=== PATIENT | male | born 1950 | race Caucasian/White ===

== ENCOUNTER 2021-02-13 14:41 | Observation (INO) | payer MEDICARE, OTHER ==
[2021-02-13] MEDS ORDERED: Zofran 4 MG/2 ML VIAL IV STA (15:10)
[2021-02-13 15:24] LABS: Absolute Neutrophil Ct (ANC) 4.94 (1.4-6.9); BASOPHIL % 0.1 % (0.0-0.4); Basophil (Absolute #) 0.01 (0-0.4); Eosinophil (Absolute #) 0 (0-0.5); Hematocrit 43.6 % (42-50); Hemoglobin 14.4 gm/dl (12.5-18.0); Lymphocyte (Absolute #) 1.16 (1.0-4.6); Lymphocytes % 16.6 % (24.0-44.0); Mean Cell Volume 96.9 fl (78-100); Mean Platelet Volume 11.4 fl (7.5-11.0); Monocyte (Absolute #) 0.87 (0.0-1.3); Monocytes % 12.5 % (0.0-12.0); Neutrophil % 70.8 % (36.0-66.0); Platelet Count 171 K/mm3 (150-450); Red Cell Distribution Width 13.2 % (11.5-14.0)
--- NOTE | 2021-02-13 15:48 | XRAY ---
Indication: Fever and vomiting. Comparison: October 24, 2014. Portable chest less inflated and remains clear. Heart not enlarged. Bony thorax intact again with mild degenerative changes and left axilla jeronimo dissection. Impression: Continued nonacute chest with chronic features.
[2021-02-13 16:11] LABS: ALBUMIN 4.3 g/dL (3.5-5.0); ALKALINE PHOSPHATASE 68 U/L (38-126); ANION GAP 16.3 MEQ/L (5-15); BLOOD UREA NITROGEN 22 mg/dL (9-20); CHLORIDE 98 mmol/L (98-107); Calcium 8.8 mg/dL (8.4-10.2); Carbon Dioxide 26 mmol/L (22-30); Creatinine 1 0.99 mg/dL (0.66-1.25); EST GLOMERULAR FILTRATION RATE > 60.0 ML/MIN; Ferritin 155 ng/mL (17.9-464); Glucose 187 mg/dL (74-106); LDH-LACTATE DEHYDROGENASE 170 U/L (120-246); Potassium 4.1 mmol/L (3.5-5.1); SGOT/AST 42 U/L (17-59); SGPT/ALT 29 U/L (0-50); SODIUM 136 mmol/L (137-145); Total Protein 7.1 g/dL (6.3-8.2)
[2021-02-13] MEDS ORDERED: Zofran 4 MG/2 ML VIAL ONE (16:26)
[2021-02-13] MEDS: Sodium Chloride 0.9% 1000 ML 1,000 ML IV SCH (16:27)
[2021-02-13 16:48] LABS: Appearance CLEAR (CLEAR); Bilirubin NEGATIVE (NEGATIVE); Blood SMALL Ery/ul (0-5); Glucose NEGATIVE (NEGATIVE); Ketones SMALL (NEGATIVE); Leukocyte Esterase NEGATIVE (NEGATIVE); Mucus SLIGHT /HPF (NEGATIVE); Nitrite NEGATIVE (NEGATIVE); Protein,Urine Dip 100 (Negative); Specific Gravity 1.027 (1.005-1.025); Urobilinogen NEGATIVE mg/dL (0-1); WBC 0-2 /HPF (0-5)
--- NOTE | 2021-02-13 16:54 | ERPHSYRPT ---
- History of Present Illness Time Seen by Provider: 02/13/21 15:30 Source: patient Exam Limitations: no limitations Patient Subjective Stated Complaint: weakness Triage Nursing Assessment: Patient brought back to ED via w/c and transferred to bed with assist of 1. Patient A+O X3. Patient's skin flushed, warm and dry. Patient states he has had fever, cough, headache, bodyac he since Tuesday. Patient states he has vomited the past two days. Patient complains of constant body aches 01/27. Physician History: This is a 70-year-old obese white male who is diabetic and has 1 week history of weakness, mild cough, fever, myalgias/arthralgias and multiple vomiting episodes. Patient denies chest pain. He only has mild shortness of breath. Patient's spouse had a positive COVID-19 test just today. Timing/Duration: week(s) (1) Severity: moderate Associated Symptoms: nausea, vomiting, cough, chills, weakness, No shortness of breath, No chest pain Allergies/Adverse Reactions: No Known Drug Allergies Allergy (Verified 02/13/21 15:09) Home Medications: Atorvastatin Calcium 20 mg PO DAILY 10/24/14 [History] Duloxetine HCl 30 mg [Cymbalta 30 MG Capsule] 60 mg PO DAILY 10/24/14 [H istory] Metformin HCl [Metformin HCl ER] 500 mg PO BID 10/24/14 [History] Pioglitazone 30 mg [Actos 30 MG] 30 mg PO DAILY 10/24/14 [History] Tamsulosin HCl 0.4 mg [Flomax 0.4 MG] 0.4 mg PO DAILY 10/24/14 [History] Hx Tetanus, Diphtheria Vaccination/Date Given: No Hx Influenza Vaccination/Date Given: Yes (2013) Hx Pneumococcal Vaccination/Date Given: No Immunizations Up to Date: Yes Travel Risk - International Travel Have you traveled outside of the country in past 3 weeks: No - Coronavirus Screening Are you exhibiting any of the following symptoms?: Yes Symptoms: Fever, Cough: New Onset, Vomiting/Diarrhea, Headaches/Body Aches/Fatigue Close contact with a COVID-19 positive Pt in past 14-21 Days: Yes - Vaccine Status Have you recieved a Covid-19 vaccination: No - Review of Systems Constitutional: No Symptoms Eyes: No Symptoms Ears, Nose, & Throat: No Symptoms Respiratory: No Symptoms Cardiac: No Symptoms Abdominal/Gastrointestinal: Nausea, Vomiting Genitourinary Symptoms: No Symptoms, Other Musculoskeletal: Arthralgias, Myalgias Skin: No Symptoms Neurological: No Symptoms Psychological: No Symptoms Endocrine: No Symptoms Hematologic/Lymphatic: No Symptoms Immunological/Allergic: No Symptoms All Other Systems: Reviewed and Negative - Past Medical History Pertinent Past Medical History: Yes Neurological History: TIA Cardiac History: Hypertension Endocrine Medical History: Diabetes Type II Other Medical History: 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 - Past Surgical History Past Surgical History: Yes Gastrointestinal: Appendectomy - Social History Smoking Status: Never smoker Exposure to second hand smoke: No Drug Use: none Patient Lives Alone: No - Nursing Vital Signs Nursing Vital Signs: Initial Vital Signs Temperature 102.0 F 02/13/21 15:19 Pulse Rate 74 02/13/21 15:19 Respiratory Rate 20 02/13/21 15:19 Blood Pressure 142/70 02/13/21 15:19 O2 Sat by Pulse Oximetry 95 02/13/21 15:19 Pain Scale Pain Intensity 2 - Physical Exam General Appearance: mild distress, alert Eye Exam: PERRL/EOMI, eyes nml inspection Ears, Nose, Throat Exam: normal ENT inspection, moist mucous membranes Neck Exam: normal inspection, non-tender, supple, full range of motion Respiratory Exam: normal breath sounds, lungs clear, airway intact, No chest tenderness, No respiratory distress Cardiovascular Exam: regular rate/rhythm, normal heart sounds, normal peripheral pulses Gastrointestinal/Abdomen Exam: soft, normal bowel sounds, tenderness Rectal Exam: not done Back Exam: normal inspection, normal range of motion, No CVA tenderness, No vertebral tenderness Extremity Exam: normal inspection, normal range of motion, pelvis stable Neurologic Exam: alert, oriented x 3, cooperative, house manager II-XII nml as tested, normal mood/affect, nml cerebellar function, nml station & gait, sensation nml Skin Exam: normal color, warm Lymphatic Exam: No adenopathy SpO2 Interpretation: normal SpO2: 95 O2 Delivery: Room Air - Course Nursing assessment & vital signs reviewed: Yes Ordered Tests: Active Orders 24 hr Category Date Time Status EKG-ER Only STAT Care 02/13/21 15:10 Active IV Insertion STAT Care 02/13/21 15:10 Active Isolation, Initiate & Maintain STAT Care 02/13/21 15:10 Active Pulse Oximetry (ED) STAT Care 02/13/21 15:10 Active CHEST 1 VIEW (PORTABLE) Routine Exams 02/13/21 15:35 Completed BLOOD CULTURE Stat Lab 02/13/21 15:40 Received CBC W DIFF Stat Lab 02/13/21 15:10 Completed CMP Stat Lab 02/13/21 15:10 Completed Ferritin Stat Lab 02/13/21 15:10 Completed LDH-LACTATE DEHYDROGENASE Stat Lab 02/13/21 15:10 Completed Lactic Acid Stat Lab 02/13/21 15:50 Completed [place] Screen Stat Lab 02/13/21 15:10 Completed TROPONIN Q3H Lab 02/13/21 15:10 Completed TROPONIN Q3H Lab 02/13/21 18:15 Completed TROPONIN Q3H Lab 02/13/21 21:15 Ordered TROPONIN Q3H Lab 02/14/21 00:15 Ordered TROPONIN Q3H Lab 02/14/21 03:15 Ordered UA W/RFX UR CULTURE Stat Lab 02/13/21 16:26 Completed Transfer Order Routine Transfer 02/13/21 Ordered Medication Summary Generic Name Dose Route Start Last Admin Trade Name Freq PRN Reason Stop Dose Admin Sodium Chloride 1,000 mls @ 100 mls/hr 02/13/21 15:15 02/13/21 16:27 Sodium Chloride 0.9% 1000 Ml IV 03/15/21 15:14 100 mls/hr .Q10H PANCHO Administration Remdesivir 200 mg/ Sodium 250 mls @ 125 mls/hr 02/13/21 18:59 Chloride IV 02/13/21 20:58 ONCE ONE Discontinued Medications Generic Name Dose Route Start Last Admin Trade Name Freq PRN Reason Stop Dose Admin Hydrocodone Bitart/Acetaminophen 10 ml 02/13/21 18:34 02/13/21 18:56 Hydrocodone-Acetamin 2.5-108/5 Ml Solution PO 02/13/21 18:35 10 ml STAT STA Administration Hydrocodone Bitart/Acetaminophen Confirm 02/13/21 18:55 Hydrocodone-Acetamin 2.5-108/5 Ml Solution Administered 02/13/21 18:56 Dose 10 ml .ROUTE .STK-MED ONE Dexamethasone Sodium Phosphate 8 mg 02/13/21 18:58 Decadron 10mg Inj. IV 02/13/21 18:59 STAT ONE Enoxaparin Sodium 40 mg 02/13/21 18:58 Enoxaparin Sodium SQ 02/13/21 18:59 STAT ONE Ibuprofen 400 mg 02/13/21 18:34 02/13/21 18:56 Motrin 400 Mg PO 02/13/21 18:35 400 mg STAT ONE Administration Ibuprofen Confirm 02/13/21 18:55 Motrin 400 Mg Administered 02/13/21 18:56 Dose 400 mg .ROUTE .STK-MED ONE Ondansetron HCl 4 mg 02/13/21 15:10 02/13/21 16:27 Zofran 4 Mg/2 Ml Vial IV 02/13/21 15:11 4 mg STAT STA Administration Ondansetron HCl Confirm 02/13/21 16:26 Zofran 4 Mg/2 Ml Vial Administered 02/13/21 16:27 Dose 4 mg .ROUTE .STK-[facility] ONE Lab/Rad Data: Laboratory Result Diagrams 02/13/21 15:10 02/13/21 15:10 Laboratory Results 02/13/21 02/13/21 02/13/21 Range/Units 18:15 16:26 15:50 WBC (4.0-10.5) K/mm3 RBC (4.1-5.6) M/mm3 Hgb (12.5-18.0) gm/dl Hct (42-50) % MCV (78-100) fl MCH (26-32) pg MCHC (32-36) g/dl RDW (11.5-14.0) % Plt Count (150-450) K/mm3 MPV (7.5-11.0) fl Gran % (36.0-66.0) % Eos # (Auto) (0-0.5) Absolute Lymphs (auto) (1.0-4.6) Absolute Monos (auto) (0.0-1.3) Lymphocytes % (24.0-44.0) % Monocytes % (0.0-12.0) % Eosinophils % (0.00-5.0) % Basophils % (0.0-0.4) % Absolute Granulocytes (1.4-6.9) Basophils # (0-0.4) Sodium (137-145) mmol/L Potassium (3.5-5.1) mmol/L Chloride (98-107) mmol/L Carbon Dioxide (22-30) mmol/L Anion Gap (5-15) MEQ/L BUN (9-20) mg/dL Creatinine (0.66-1.25) mg/dL Estimated GFR ML/MIN Glucose (74-106) mg/dL Lactic Acid 1.4 (0.4-2.0) Calcium (8.4-10.2) mg/dL Ferritin (17.9-464) ng/mL Total Bilirubin (0.2-1.3) mg/dL AST (17-59) U/L ALT (0-50) U/L Alkaline Phosphatase (38-126) U/L Lactate Dehydrogenase (120-246) U/L Troponin I < 0.012 (0.000-0.034) ng/mL Serum Total Protein (6.3-8.2) g/dL Albumin (3.5-5.0) g/dL Urine Color YELLOW (YELLOW) Urine Appearance CLEAR (CLEAR) Urine pH 5.0 (5-6) Ur Specific [place] 1.027 (1.005-1.025) Urine Protein 100 (Negative) Urine Ketones SMALL (NEGATIVE) Urine Blood SMALL (0-5) Peter/ul Urine Nitrite NEGATIVE (NEGATIVE) Urine Bilirubin NEGATIVE (NEGATIVE) Urine Urobilinogen NEGATIVE (0-1) mg/dL Ur Leukocyte Esterase NEGATIVE (NEGATIVE) Urine WBC (Auto) 0-2 (0-5) /HPF Urine RBC (Auto) NONE (0-2) /HPF U Epithel Cells (Auto) NONE (FEW) /HPF Urine Bacteria (Auto) NONE SEEN (NEGATIVE) /HPF Urine Mucus (Auto) SLIGHT (NEGATIVE) /HPF Urine Culture Reflexed NO (NO) Urine Glucose NEGATIVE (NEGATIVE) mg/dL Monoscreen (Negative) Group A Strep Antibody (NEGATIVE) 02/13/21 02/13/21 02/13/21 Range/Units 15:10 15:10 15:10 WBC (4.0-10.5) K/mm3 RBC (4.1-5.6) M/mm3 Hgb (12.5-18.0) gm/dl Hct (42-50) % MCV (78-100) fl MCH (26-32) pg MCHC (32-36) g/dl RDW (11.5-14.0) % Plt Count (150-450) K/mm3 MPV (7.5-11.0) fl Gran % (36.0-66.0) % Eos # (Auto) (0-0.5) Absolute Lymphs (auto) (1.0-4.6) Absolute Monos (auto) (0.0-1.3) Lymphocytes % (24.0-44.0) % Monocytes % (0.0-12.0) % Eosinophils % (0.00-5.0) % Basophils % (0.0-0.4) % Absolute Granulocytes (1.4-6.9) Basophils # (0-0.4) Sodium (137-145) mmol/L Potassium (3.5-5.1) mmol/L Chloride (98-107) mmol/L Carbon Dioxide (22-30) mmol/L Anion Gap (5-15) MEQ/L BUN (9-20) mg/dL Creatinine (0.66-1.25) mg/dL Estimated GFR ML/MIN Glucose (74-106) mg/dL Lactic Acid (0.4-2.0) Calcium (8.4-10.2) mg/dL Ferritin (17.9-464) ng/mL Total Bilirubin (0.2-1.3) mg/dL AST (17-59) U/L ALT (0-50) U/L Alkaline Phosphatase (38-126) U/L Lactate Dehydrogenase (120-246) U/L Troponin I < 0.012 (0.000-0.034) ng/mL Serum Total Protein (6.3-8.2) g/dL Albumin (3.5-5.0) g/dL Urine Color (YELLOW) Urine Appearance (CLEAR) Urine pH (5-6) Ur Specific [place] (1.005-1.025) Urine Protein (Negative) Urine Ketones (NEGATIVE) Urine Blood (0-5) Peter/ul Urine Nitrite (NEGATIVE) Urine Bilirubin (NEGATIVE) Urine Urobilinogen (0-1) mg/dL Ur Leukocyte Esterase (NEGATIVE) Urine WBC (Auto) (0-5) /HPF Urine RBC (Auto) (0-2) /HPF U Epithel Cells (Auto) (FEW) /HPF Urine Bacteria (Auto) (NEGATIVE) /HPF Urine Mucus (Auto) (NEGATIVE) /HPF Urine Culture Reflexed (NO) Urine Glucose (NEGATIVE) mg/dL Monoscreen NEGATIVE (Negative) Group A Strep Antibody NOT DETECTED (NEGATIVE) 02/13/21 02/13/21 Range/Units 15:10 15:10 WBC 7.0 (4.0-10.5) K/mm3 RBC 4.50 (4.1-5.6) M/mm3 Hgb 14.4 (12.5-18.0) gm/dl Hct 43.6 (42-50) % MCV 96.9 (78-100) fl MCH 32.0 (26-32) pg MCHC 33.0 (32-36) g/dl RDW 13.2 (11.5-14.0) % Plt Count 171 (150-450) K/mm3 MPV 11.4 H (7.5-11.0) fl Gran % 70.8 H (36.0-66.0) % Eos # (Auto) 0 (0-0.5) Absolute Lymphs (auto) 1.16 (1.0-4.6) Absolute Monos (auto) 0.87 (0.0-1.3) Lymphocytes % 16.6 L (24.0-44.0) % Monocytes % 12.5 H (0.0-12.0) % Eosinophils % 0.0 (0.00-5.0) % Basophils % 0.1 (0.0-0.4) % Absolute Granulocytes 4.94 (1.4-6.9) Basophils # 0.01 (0-0.4) Sodium 136 L (137-145) mmol/L Potassium 4.1 (3.5-5.1) mmol/L Chloride 98 (98-107) mmol/L Carbon Dioxide 26 (22-30) mmol/L Anion Gap 16.3 H (5-15) MEQ/L BUN 22 H (9-20) mg/dL Creatinine 0.99 (0.66-1.25) mg/dL Estimated GFR > 60.0 ML/MIN Glucose 187 H (74-106) mg/dL Lactic Acid (0.4-2.0) Calcium 8.8 (8.4-10.2) mg/dL Ferritin 155 (17.9-464) ng/mL Total Bilirubin 1.00 (0.2-1.3) mg/dL AST 42 (17-59) U/L ALT 29 (0-50) U/L Alkaline Phosphatase 68 (38-126) U/L Lactate Dehydrogenase 170 (120-246) U/L Troponin I (0.000-0.034) ng/mL Serum Total Protein 7.1 (6.3-8.2) g/dL Albumin 4.3 (3.5-5.0) g/dL Urine Color (YELLOW) Urine Appearance (CLEAR) Urine pH (5-6) Ur Specific [place] (1.005-1.025) Urine Protein (Negative) Urine Ketones (NEGATIVE) Urine Blood (0-5) Peter/ul Urine Nitrite (NEGATIVE) Urine Bilirubin (NEGATIVE) Urine Urobilinogen (0-1) mg/dL Ur Leukocyte Esterase (NEGATIVE) Urine WBC (Auto) (0-5) /HPF Urine RBC (Auto) (0-2) /HPF U Epithel Cells (Auto) (FEW) /HPF Urine Bacteria (Auto) (NEGATIVE) /HPF Urine Mucus (Auto) (NEGATIVE) /HPF Urine Culture Reflexed (NO) Urine Glucose (NEGATIVE) mg/dL Monoscreen (Negative) Group A Strep Antibody (NEGATIVE) - Progress Progress: improved, re-examined Progress Note: 02/13/21 18:55 Chest x-ray shows no acute cardiopulmonary process. Medical decision making: This patient has classic COVID-19 infection symptoms and his spouse was diagnosed with COVID-19 infection today. His symptoms have been present for 1 week and have been worsening. He has had a mild cough, shortness of breath, body aches and pains. He denies chest pain. He was mildly hypoxic in the 88 to 90% room air oxygenation levels. We placed him on 2 L nasal cannula of oxygen and his oxygen saturation improved to 96 to 97%. Patient is also had a fever as high as 102. He is mildly dehydrated as well. He had several episodes of vomiting in the last few days. I think the best course of action this patient is to bring him in the hospital under observation. I spoke with Dr. Cosme, our COVID-19 hospitalist. He agrees. We will place him in the Covid unit. Patient will receive steroids, remdesivir, Lovenox, and will continue this in the hospital. Discussed with Dr.: Other (Carmelina) - Departure Departure Disposition: Observation Clinical Impression: COVID-19 virus infection, Hypoxia, Fever Condition: Fair Critical Care Time: Yes Critical Care Time(excluding separately billable procedures): Critical 30-74 mins Referrals: FABIENNE LEON MD [Primary Care Provider] -
[2021-02-13 17:10] LABS: Bacteria NONE SEEN /HPF (NEGATIVE)
[2021-02-13] MEDS ORDERED: MOTRIN 400 MG PO ONE (18:34)
[2021-02-13] MEDS ORDERED: HYDROCODONE-ACETAMIN 2.5-108/5 ML SOLUTION PO STA (18:34)
[2021-02-13] MEDS ORDERED: HYDROCODONE-ACETAMIN 2.5-108/5 ML SOLUTION ONE (18:55)
[2021-02-13] MEDS ORDERED: MOTRIN 400 MG ONE (18:55)
[2021-02-13] MEDS ORDERED: DECADRON 10MG INJ. IV ONE (18:58)
[2021-02-13] MEDS ORDERED: ENOXAPARIN SODIUM SQ ONE ×3 (18:58→20:40)
[2021-02-13] MEDS ORDERED: REMDESIVIR 200 MG in Sodium Chloride 0.9% 250 ML 250 ML IV ONE (18:59)
[2021-02-13] MEDS ORDERED: HUMULIN R SQ PRN (20:17)
[2021-02-13] MEDS ORDERED: Sodium Chloride 0.9% 1000 ML 1,000 ML IV SCH (20:17)
[2021-02-13] MEDS ORDERED: TYLENOL 325 MG PO PRN (20:17)
[2021-02-13] MEDS ORDERED: DECADRON 10MG INJ. ONE (20:38)
[2021-02-13] MEDS ORDERED: Ativan 1 MG PO PRN (22:55)
[2021-02-13] MEDS ORDERED: HUMALOG SQ PRN (22:57)
[2021-02-13] MEDS: ENOXAPARIN SODIUM SQ SCH (23:31)
[2021-02-14] MEDS: Sodium Chloride 0.9% 1000 ML 1,000 ML IV SCH (00:04)
[2021-02-14 03:57] LABS: BASOPHIL % 0.2 % (0.0-0.4); Basophil (Absolute #) 0.01 (0-0.4); Eosinophil (Absolute #) 0 (0-0.5); Hematocrit 41.9 % (42-50); Hemoglobin 13.3 gm/dl (12.5-18.0); Lymphocyte (Absolute #) 0.79 (1.0-4.6); Lymphocytes % 14.6 % (24.0-44.0); Mean Cell Volume 98.8 fl (78-100); Mean Corpuscular Hemoglobin 31.4 pg (26-32); Mean Corpuscular Hgb Concent. 31.7 g/dl (32-36); Mean Platelet Volume 11.3 fl (7.5-11.0); Monocyte (Absolute #) 0.41 (0.0-1.3); Monocytes % 7.6 % (0.0-12.0); Neutrophil % 77.6 % (36.0-66.0); Platelet Count 149 K/mm3 (150-450); Red Blood Count 4.24 M/mm3 (4.1-5.6); Red Cell Distribution Width 13.2 % (11.5-14.0); White Blood Count 5.4 K/mm3 (4.0-10.5)
[2021-02-14 04:05] LABS: ALBUMIN 3.6 g/dL (3.5-5.0); ALKALINE PHOSPHATASE 56 U/L (38-126); ANION GAP 14.2 MEQ/L (5-15); BLOOD UREA NITROGEN 22 mg/dL (9-20); CHLORIDE 103 mmol/L (98-107); Carbon Dioxide 23 mmol/L (22-30); Creatinine 1 0.86 mg/dL (0.66-1.25); EST GLOMERULAR FILTRATION RATE > 60.0 ML/MIN; Glucose 224 mg/dL (74-106); Potassium 4.6 mmol/L (3.5-5.1); SGOT/AST 49 U/L (17-59); SGPT/ALT 31 U/L (0-50); SODIUM 135 mmol/L (137-145); Total Protein 6.2 g/dL (6.3-8.2)
[2021-02-14] MEDS: ENOXAPARIN SODIUM SQ SCH (09:39)
[2021-02-14] MEDS ORDERED: Actos 30 MG PO SCH (10:00)
[2021-02-14] MEDS ORDERED: DECADRON 10MG INJ. IV SCH (10:00)
[2021-02-14] MEDS ORDERED: Cymbalta 30 MG Capsule PO SCH (12:00)
[2021-02-14] MEDS ORDERED: Flomax 0.4 MG PO SCH (12:00)
[2021-02-14] MEDS ORDERED: MELOXICAM PO SCH (12:00)
[2021-02-14 13:28] VITALS: BP 121/61
[2021-02-14 14:37] VITALS: PULSE 61; O2SAT 93
[2021-02-14] MEDS ORDERED: Glucophage 500 MG PO SCH (17:00)
[2021-02-14] MEDS ORDERED: REMDESIVIR 100 MG in Sodium Chloride 0.9% 100 ML BAG 100 ML IV SCH (18:00)
[2021-02-14] MEDS ORDERED: ZOCOR 20MG PO SCH (22:00)
[2021-02-14] MEDS ORDERED: NON-FORMULARY ITEM (Metformin Hcl [Metformin Er Osmotic] 500 MG) PO SCH (22:00)
[2021-02-15] MEDS ORDERED: NON-FORMULARY ITEM (Atorvastatin Calcium [Atorvastatin Calcium] 20 MG) PO SCH (10:00)
--- NOTE | 2021-02-16 11:39 | SSS ---
ADMISSION DIAGNOSES: 1) Aching all over. 2) Shortness of breath. 3) Nausea and vomiting for seven days. DISCHARGE DIAGNOSES: 1) COVID. 2) HYPOXIA. HISTORY OF PRESENT ILLNESS: The patient's tested positive for COVID about a week ago and he has been gradually getting worse with continuous symptoms of fever, sweats, not drinking well. He came to the emergency room and needed assistance to get in the bed. Vomiting has been worse for two days, body aches. He is a 70 year-old white male who is obese with diabetes, nonsmoker and positive COVID test yesterday. However, his is at home with COVID for the entire last week. MEDICATIONS: Atorvastatin calcium 20 q.d., Cymbalta 30 q.d., Metformin 500 b.i.d., Actos 30 q.d., Tamsulosin 0.4 q.d. ALLERGIES: NKDA. PAST MEDICAL HISTORY: Obesity, diabetes mellitus. Transient ischemic attack several years ago, has controlled hypertension, diabetes mellitus for many years. REVIEW OF SYSTEMS: HEENT: No problems hearing or seeing. CHEST: Short of breath at rest and coughing. CVS: No exertional chest pain, palpitations, heart attack or heart failure. ABDOMEN: Nauseated, vomiting. No diarrhea for three days. EXTREMITIES: Mild arthralgia all over. PHYSICAL EXAMINATION: The patient is alert, orientated, pleasant gentleman. VITAL SIGNS: Temperature 102F, pulse 74, respirations 20, blood pressure 140/70. O2 saturation initially was 95% however it has gone down to 80 and he is on 4 liters of oxygen. GENERAL APPEARANCE: The patient is in mild distress. Again he is alert and pleasant. HEENT: Pupils equal and reactive to light. NECK: Supple without adenopathy. CHEST: Few wheezes bilateral. CVS: No murmurs or gallops. Heart rate is about 100. ABDOMEN: Obese. No tenderness or organomegaly. EXTREMITIES: No cyanosis. No edema. LAB DATA AND TESTS: His D-dimer is elevated. His EKG is normal. Chest x-ray showed some infiltrates. PLAN: At this point will go ahead and start him on Remdesivir, Decadron.
== END 2021-02-14 16:45 | disposition home or self-care (01) ==
LOC: ED 14:41 → MED SURG 20:09
PROVIDERS: ADMIT Family Medicine; ATTEND Family Medicine
DX: U07.1 COVID-19 (principal); R53.1 Weakness; R06.02 Shortness of breath; R11.2 Nausea with vomiting, unspecified; Z79.899 Other long term (current) drug therapy; R51.9 Headache, unspecified; E86.0 Dehydration; R09.02 Hypoxemia; E11.9 Type 2 diabetes mellitus without complications; I10 Essential (primary) hypertension; Z20.822 Contact with and (suspected) exposure to COVID-19
CPT/HCPCS: 36000; 36415; 71045; 80053; 81001; 82728; 82947; 83036; 83605; 83615; 84484; 85025; 85379; 86308; 87040; 87651; 93005; 93268; 94760; 96372; 96374; 99285; 99291; G0378; U0003; J1100; J1650; J2405; A9270-GY

== ENCOUNTER 2021-02-19 09:59 | Inpatient (IN) | payer MEDICARE, OTHER ==
[2021-02-19] MEDS: Sodium Chloride 0.9% 1000 ML 1,000 ML IV SCH (10:25)
[2021-02-19 10:42] LABS: BASOPHIL % 0.2 % (0.0-0.4); Basophil (Absolute #) 0.01 (0-0.4); Eosinophil % 0.2 % (0.00-5.0); Eosinophil (Absolute #) 0.01 (0-0.5); Hematocrit 43.4 % (42-50); Hemoglobin 13.9 gm/dl (12.5-18.0); Lymphocyte (Absolute #) 0.83 (1.0-4.6); Lymphocytes % 13.7 % (24.0-44.0); Mean Cell Volume 95.6 fl (78-100); Mean Corpuscular Hemoglobin 30.6 pg (26-32); Mean Platelet Volume 11.4 fl (7.5-11.0); Monocyte (Absolute #) 0.53 (0.0-1.3); Monocytes % 8.7 % (0.0-12.0); Neutrophil % 77.2 % (36.0-66.0); Platelet Count 163 K/mm3 (150-450); Red Blood Count 4.54 M/mm3 (4.1-5.6); Red Cell Distribution Width 12.7 % (11.5-14.0); White Blood Count 6.1 K/mm3 (4.0-10.5)
--- NOTE | 2021-02-19 10:48 | XRAY ---
Indication: Short of breath. Positive Covid 19. Comparison: February 13, 2021. Portable chest demonstrates new diffuse bilateral interstitial alveolar opacities without consolidation/large effusion. Heart not enlarged. Bony thorax intact again with mild degenerative changes and left axilla jeronimo dissection.
[2021-02-19 10:53] LABS: INR 1.13 (0.8-3.0); PROTIME 13.3 SECONDS (9.4-12.5)
[2021-02-19 11:08] LABS: MAGNESIUM 1.9 mg/dL (1.6-2.3)
[2021-02-19 11:11] LABS: INFLUENZA A NEGATIVE (NEGATIVE); INFLUENZA B NEGATIVE (NEGATIVE)
[2021-02-19 11:27] LABS: NT PRO BNP 94.8 pg/mL (0-900)
--- NOTE | 2021-02-19 11:40 | ERPHSYRPT ---
- History of Present Illness Time Seen by Provider: 02/19/21 10:10 Source: patient Exam Limitations: no limitations Patient Subjective Stated Complaint: Pt states "I tested positive for covid last tuesday, I had the infusions and I do not feel any better. I have anxiety, I am sore, I am tired and I can barely sleep." Triage Nursing Assessment: PT presented alert and oriented X 3, skin pwd Pt ambulates with an upright steady gait, able to speak in clear full sentences pt in no apparent respriatory distress. pt moaning every now and then. Physician History: Patient is a 70-year-old male who was diagnosed on 827 with Covid. He states that he received an infusion of what we assume her monoclonal antibodies however there is no record of that in the outpatient infusion center or in medical records. He reports that he has been having increasing shortness of breath and dyspnea he denies any fever he denies any nausea or vomiting he noticed no change in his taste or smell. Timing/Duration: week(s) (1), worse Cough Quality/Degree: dry cough Possible Cause: no prior episodes Modifying Factors: Improves With: coughing, exertion Associated Symptoms: chest pain/soreness, cough, shortness of breath Allergies/Adverse Reactions: No Known Drug Allergies Allergy (Verified 02/13/21 15:09) Home Medications: Atorvastatin Calcium 20 mg PO DAILY 10/24/14 [History] Duloxetine HCl 30 mg [Cymbalta 30 MG Capsule] 60 mg PO DAILY 10/24/14 [History] Metformin HCl [Metformin ER Osmotic] 500 mg PO BID 10/24/14 [History] Pioglitazone 30 mg [Actos 30 MG] 30 mg PO DAILY 10/24/14 [History] Tamsulosin HCl 0.4 mg [Flomax 0.4 MG] 0.4 mg PO DAILY 10/24/14 [History] Albuterol Sulfate [Proair Hfa] 8.5 gm IH DAILY PRN PRN 02/14/21 [History] Fluticasone/Salmeterol 45 [Advair Hfa Common Canister*] 1 puff IH BID PRN 02/14/21 [History] Meloxicam 7.5 mg PO DAILY 02/14/21 [History] Hx Tetanus, Diphtheria Vaccination/Date Given: Yes Hx Influenza Vaccination/Date Given: Yes Hx Pneumococcal Vaccination/Date Given: Yes Immunizations Up to Date: Yes Travel Risk - International Travel Have you traveled outside of the country in past 3 weeks: No - Coronavirus Screening Are you exhibiting any of the following symptoms?: Yes Symptoms: Cough: New Onset, Shortness of Breath - Vaccine Status Have you recieved a Covid-19 vaccination: No - Review of Systems Constitutional: No Fever, No Chills Eyes: No Symptoms Ears, Nose, & Throat: No Symptoms Respiratory: Cough, Dyspnea Cardiac: No Chest Pain, No Edema, No Syncope Abdominal/Gastrointestinal: No Abdominal Pain, No Nausea, No Vomiting, No Diar sarah Genitourinary Symptoms: No Dysuria Musculoskeletal: No Back Pain, No Neck Pain Skin: No Rash Neurological: No Dizziness, No Focal Weakness, No Sensory Changes Psychological: No Symptoms Endocrine: No Symptoms All Other Systems: Reviewed and Negative - Past Medical History Pertinent Past Medical History: Yes Neurological History: No Pertinent History ENT History: No Pertinent History Cardiac History: No Pertinent History Respiratory History: Sleep Apnea Endocrine Medical History: Diabetes Type II Musculoskeletal History: No Pertinent History GI Medical History: Colorectal Cancer History: No Pertinent History, Other Psycho-Social History: No Pertinent History Male Reproductive Disorders: Prostate Problems Other Medical History: 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 - Past Surgical History Past Surgical History: Yes Neuro Surgical History: No Pertinent History Cardiac: No Pertinent History Respiratory: No Pertinent History Gastrointestinal: Appendectomy, Cholecystectomy Genitourinary: No Pertinent History Musculoskeletal: No Pertinent History Male Surgical History: No Pertinent History - Social History Smoking Status: Never smoker Exposure to second hand smoke: Yes Drug Use: none Patient Lives Alone: No - Nursing Vital Signs Nursing Vital Signs: Initial Vital Signs Temperature 98.0 F 02/19/21 10:00 Pulse Rate 71 02/19/21 10:00 Respiratory Rate 22 02/19/21 10:00 Blood Pressure 138/72 02/19/21 10:00 O2 Sat by Pulse Oximetry 97 02/19/21 10:00 Pain Scale Pain Intensity 4 - Physical Exam General Appearance: mild distress, alert Eye Exam: PERRL/EOMI, eyes nml inspection Ears, Nose, Throat Exam: normal ENT inspection, TMs normal, pharynx normal, moist mucous membranes Neck Exam: normal inspection, non-tender, supple, full range of motion Respiratory Exam: lungs clear, diminished breath sounds, crackles/rales, rhonchi, No respiratory distress Cardiovascular Exam: regular rate/rhythm, normal heart sounds Gastrointestinal/Abdomen Exam: soft, No tenderness Back Exam: normal inspection, No CVA tenderness, No vertebral tenderness Extremity Exam: normal inspection, normal range of motion Neurologic Exam: alert, oriented x 3, cooperative, normal mood/affect, sensation nml, No motor deficits Skin Exam: normal color, warm, dry, No rash Lymphatic Exam: No adenopathy SpO2: 94 - Course Nursing assessment & vital signs reviewed: Yes EKG Interpreted by Me: RATE (72), Sinus Rhythm, LAFB, Right Bundle Branch Block, Non-specific ST Changes - Radiology Exams Chest X-ray Interpretation: Other (Chest x-ray was read as portable chest reviewing revealing new diffuse bilateral interstitial alveolar opacities without consolidation or large effusion.) Ordered Tests: Active Orders 24 hr Category Date Time Status EKG-ER Only STAT Care 02/19/21 10:15 Active IV Insertion STAT Care 02/19/21 10:22 Active Oxygen-ED Only Nasal Cannula 3 lpm Care 02/19/21 10:15 Active Pulse Oximetry (ED) STAT Care 02/19/21 10:15 Active CHEST 1 VIEW (PORTABLE) Stat Exams 02/19/21 10:16 Completed CBC W DIFF Stat Lab 02/19/21 10:39 Completed D-DIMER QUANTITATIVE Stat Lab 02/19/21 10:39 Received Lactic Acid Stat Lab 02/19/21 10:35 Completed MAGNESIUM Stat Lab 02/19/21 10:39 Completed NT PRO BNP Stat Lab 02/19/21 10:39 Completed PROTIME WITH INR Stat Lab 02/19/21 10:39 Received TROPONIN Q3H Lab 02/19/21 10:39 Completed TROPONIN Q3H Lab 02/19/21 13:30 Ordered TROPONIN Q3H Lab 02/19/21 16:30 Ordered TROPONIN Q3H Lab 02/19/21 19:30 Ordered TROPONIN Q3H Lab 02/19/21 22:30 Ordered UA W/RFX UR CULTURE Stat Lab 02/19/21 10:16 Ordered Medication Summary Generic Name Dose Route Start Last Admin Trade Name Freq PRN Reason Stop Dose Admin Sodium Chloride 1,000 mls @ 100 mls/hr 02/19/21 10:15 02/19/21 10:25 Sodium Chloride 0.9% 1000 Ml IV 03/21/21 10:14 100 mls/hr .Q10H PANCHO Administration Lab/Rad Data: Laboratory Result Diagrams 02/19/21 10:39 Laboratory Results 02/19/21 02/19/21 02/19/21 Range/Units 10:39 10:39 10:39 WBC 6.1 (4.0-10.5) K/mm3 RBC 4.54 (4.1-5.6) M/mm3 Hgb 13.9 (12.5-18.0) gm/dl Hct 43.4 (42-50) % MCV 95.6 (78-100) fl MCH 30.6 (26-32) pg MCHC 32.0 (32-36) g/dl RDW 12.7 (11.5-14.0) % Plt Count 163 (150-450) K/mm3 MPV 11.4 H (7.5-11.0) fl Gran % 77.2 H (36.0-66.0) % Eos # (Auto) 0.01 (0-0.5) Absolute Lymphs (auto) 0.83 L (1.0-4.6) Absolute Monos (auto) 0.53 (0.0-1.3) Lymphocytes % 13.7 L (24.0-44.0) % Monocytes % 8.7 (0.0-12.0) % Eosinophils % 0.2 (0.00-5.0) % Basophils % 0.2 (0.0-0.4) % Absolute Granulocytes 4.70 (1.4-6.9) Basophils # 0.01 (0-0.4) Lactic Acid (0.4-2.0) Magnesium 1.9 (1.6-2.3) mg/dL Troponin I < 0.012 (0.000-0.034) ng/mL NT-Pro-B Natriuret Pep 94.8 (0-900) pg/mL Influenza Type A Ag (NEGATIVE) Influenza Type B Ag (NEGATIVE) 02/19/21 02/19/21 Range/Units 10:39 10:35 WBC (4.0-10.5) K/mm3 RBC (4.1-5.6) M/mm3 Hgb (12.5-18.0) gm/dl Hct (42-50) % MCV (78-100) fl MCH (26-32) pg MCHC (32-36) g/dl RDW (11.5-14.0) % Plt Count (150-450) K/mm3 MPV (7.5-11.0) fl Gran % (36.0-66.0) % Eos # (Auto) (0-0.5) Absolute Lymphs (auto) (1.0-4.6) Absolute Monos (auto) (0.0-1.3) Lymphocytes % (24.0-44.0) % Monocytes % (0.0-12.0) % Eosinophils % (0.00-5.0) % Basophils % (0.0-0.4) % Absolute Granulocytes (1.4-6.9) Basophils # (0-0.4) Lactic Acid 1.1 (0.4-2.0) Magnesium (1.6-2.3) mg/dL Troponin I (0.000-0.034) ng/mL NT-Pro-B Natriuret Pep (0-900) pg/mL Influenza Type A Ag NEGATIVE (NEGATIVE) Influenza Type B Ag NEGATIVE (NEGATIVE) - Progress Progress: unchanged Air Movement: fair Blood Culture(s) Obtained: Yes Antibiotics given: Yes Discussed with DrManuel: Other (Dr Whitaker) Will see patient in: hospital (full admit) - Departure Departure Disposition: In-patient Admission Clinical Impression: Pneumonia due to COVID-19 virus, Hypoxia Condition: Fair Critical Care Time: No Referrals: FABIENNE LEON MD [Primary Care Provider] -
[2021-02-19] MEDS ORDERED: Hydromorphone 1 mg/ml Injection IV PRN (11:42)
[2021-02-19] MEDS ORDERED: ROCEPHIN 1 Gm-D5w 50 ml Bag** 1 G/50 ML IVPB IV SCH (13:00)
[2021-02-19] MEDS ORDERED: Zithromax 500 MG/ 250 ML NaCl Premix 500 MG/250 ML IVPB IV SCH (13:00)
[2021-02-19 14:00] LABS: Appearance CLEAR (CLEAR); Bilirubin NEGATIVE (NEGATIVE); Blood NEGATIVE Ery/ul (0-5); Glucose >=500 mg/dL (NEGATIVE); Ketones TRACE (NEGATIVE); Leukocyte Esterase TRACE (NEGATIVE); Mucus SLIGHT /HPF (NEGATIVE); Nitrite NEGATIVE (NEGATIVE); Protein,Urine Dip NEGATIVE (Negative); Specific Gravity 1.016 (1.005-1.025); Urobilinogen NEGATIVE mg/dL (0-1)
[2021-02-19] MEDS ORDERED: Ventolin Hfa MDI IH ONE (14:10)
[2021-02-19] MEDS ORDERED: Ativan 1 MG PO PRN (15:29)
[2021-02-19] MEDS ORDERED: TYLENOL EXTRA STRENGTH 500 MG PO PRN (15:30)
[2021-02-19] MEDS: Pepcid 20 MG VIAL IV SCH ×2 (15:46→21:48)
[2021-02-19] MEDS: Cymbalta 30 MG Capsule PO SCH (17:15)
[2021-02-19] MEDS: ZOCOR 20MG PO SCH (17:15)
[2021-02-19] MEDS: DECADRON 10MG INJ. IV SCH (17:16)
[2021-02-19] MEDS: ENOXAPARIN SODIUM SQ SCH (17:16)
[2021-02-19] MEDS: OLUMIANT PO SCH (17:16)
[2021-02-19] MEDS: Actos 30 MG PO SCH (17:18)
[2021-02-19] MEDS: Flomax 0.4 MG PO SCH (17:18)
[2021-02-19] MEDS: MELOXICAM PO SCH (17:19)
[2021-02-19] MEDS: Glucophage XR 500 MG PO SCH (17:22)
[2021-02-19] MEDS ORDERED: REMDESIVIR 200 MG in Sodium Chloride 0.9% 250 ML 250 ML IV ONE (18:00)
[2021-02-19] MEDS: Advair Hfa 115/21 Common canister IH SCH (20:10)
[2021-02-19] MEDS: VENTOLIN COMMON CANISTER IH PRN (20:10)
[2021-02-19] MEDS ORDERED: NON-FORMULARY ITEM (Metformin Hcl [Metformin Er Osmotic] 500 MG) PO SCH (22:00)
[2021-02-19] MEDS ORDERED: Pepcid 20 MG VIAL IV SCH (22:00)
[2021-02-20] MEDS: Sodium Chloride 0.9% 1000 ML 1,000 ML IV SCH (03:52)
[2021-02-20 06:20] LABS: Absolute Neutrophil Ct (ANC) 1.66 (1.4-6.9); Basophil (Absolute #) 0 (0-0.4); Eosinophil (Absolute #) 0 (0-0.5); Hematocrit 42.2 % (42-50); Hemoglobin 13.4 gm/dl (12.5-18.0); Lymphocyte (Absolute #) 0.78 (1.0-4.6); Mean Corpuscular Hemoglobin 30.8 pg (26-32); Mean Corpuscular Hgb Concent. 31.8 g/dl (32-36); Mean Platelet Volume 11.4 fl (7.5-11.0); Monocyte (Absolute #) 0.35 (0.0-1.3); Monocytes % 12.5 % (0.0-12.0); Neutrophil % 59.5 % (36.0-66.0); Platelet Count 170 K/mm3 (150-450); Red Blood Count 4.35 M/mm3 (4.1-5.6); Red Cell Distribution Width 12.6 % (11.5-14.0); White Blood Count 2.8 K/mm3 (4.0-10.5)
[2021-02-20 06:43] LABS: INR 1.04 (0.8-3.0); PROTIME 12.3 SECONDS (9.4-12.5)
[2021-02-20 06:44] LABS: ALBUMIN 3.4 g/dL (3.5-5.0); ALKALINE PHOSPHATASE 68 U/L (38-126); ANION GAP 13.5 MEQ/L (5-15); BLOOD UREA NITROGEN 15 mg/dL (9-20); CHLORIDE 103 mmol/L (98-107); Calcium 8.3 mg/dL (8.4-10.2); Carbon Dioxide 26 mmol/L (22-30); Creatinine 1 0.78 mg/dL (0.66-1.25); EST GLOMERULAR FILTRATION RATE > 60.0 ML/MIN; Glucose 267 mg/dL (74-106); Potassium 5.2 mmol/L (3.5-5.1); SGOT/AST 31 U/L (17-59); SGPT/ALT 19 U/L (0-50); SODIUM 137 mmol/L (137-145); Total Protein 6.1 g/dL (6.3-8.2)
[2021-02-20] MEDS: VENTOLIN COMMON CANISTER IH PRN ×2 (07:35→19:35)
[2021-02-20] MEDS: Advair Hfa 115/21 Common canister IH SCH ×2 (07:35→19:35)
[2021-02-20] MEDS: Pepcid 20 MG VIAL IV SCH ×2 (09:38→22:52)
[2021-02-20] MEDS: DECADRON 10MG INJ. IV SCH (09:38)
[2021-02-20] MEDS: ENOXAPARIN SODIUM SQ SCH (09:41)
[2021-02-20] MEDS: Cymbalta 30 MG Capsule PO SCH (09:41)
[2021-02-20] MEDS: ZOCOR 20MG PO SCH (09:41)
[2021-02-20] MEDS: Glucophage XR 500 MG PO SCH ×2 (09:41→17:43)
[2021-02-20] MEDS: MELOXICAM PO SCH (09:42)
[2021-02-20] MEDS: Flomax 0.4 MG PO SCH (09:42)
[2021-02-20] MEDS: Actos 30 MG PO SCH (09:42)
[2021-02-20] MEDS: HUMALOG SQ PRN ×4 (09:46→22:53)
[2021-02-20] MEDS ORDERED: Zithromax 500 MG/ 250 ML NaCl Premix 500 MG/250 ML IVPB IV SCH (10:00)
[2021-02-20] MEDS ORDERED: NON-FORMULARY ITEM (Atorvastatin Calcium [Atorvastatin Calcium] 20 MG) PO SCH (10:00)
[2021-02-20] MEDS ORDERED: ROCEPHIN 1 Gm-D5w 50 ml Bag** 1 G/50 ML IVPB IV SCH (10:00)
--- NOTE | 2021-02-20 11:11 | HP ---
CHIEF COMPLAINT: Fatigue, anxiety, achiness, cannot sleep, positive COVID. HISTORY OF PRESENT ILLNESS: The patient tested positive for COVID approximately 02/11/2021. He is a 70-year-old white male who has diabetes mellitus. He had monoclonal antibodies and we cannot find that record but I am sure he did. It did not help him any and feels like he is deteriorating. He states he has a dry cough normally no coughing, no lung disease. He is real achy all over and has not been able to sleep. MEDICATIONS: Cymbalta 30 q.d. for anxiety, atorvastatin 20 q.d. for hyperlipidemia, metformin extended release 500 b.i.d., Actos 30 q.d., Flomax 0.4 q.d., Proair 2 puffs every 4 hours PRN just started a few days ago. Advair HFA just started recently, meloxicam 7.5 q.d. ALLERGIES: NKDA. TRAVEL RISK: None. VACCINE: None. CORONAVIRUS SCREENING: Exposure - Does not know who. Family is healthy. Lives with his . Children live nearby in [place]. PAST MEDICAL HISTORY: Colorectal cancer numerous years ago. Prostate problems. Benign prostatic hypertrophy. No cardiac history. He is a noninsulin dependent diabetic. Nonsmoker. PAST SURGICAL HISTORY: Skin cancer removed from back. Cholecystectomy. Appendectomy. REVIEW OF SYSTEMS: HEENT: Hears and sees okay. CHEST: Kind of achy but no real chest pain. He is coughing, shortness of breath on any exertion. O2 drops when he walks in the emergency room. ABDOMEN: Not eating well. No nausea or vomiting. He has no appetite. Taste is okay. SKIN: No rash. PSYCHOLOGIC: The patient states he has some anxiety and cannot sleep at night for thinking of things he has to do and that is kind of normal for him, worse since he has had COVID. PHYSICAL EXAMINATION: The patient is alert, orientated, in some mild respiratory distress when I saw him initially in the afternoon. His vital signs in the emergency room were temperature 98F, pulse 70, respiratory rate 20 and blood pressure 138/72. O2 saturation 97%. Pain scale 4. On walking dropped his O2 saturation down into the 70's and that was this morning. HEENT: Pupils equal and reactive to light. NECK: Supple without adenopathy. CHEST: Few crackles. CVS: Heart sounds regular. ABDOMEN: Soft, obese. No tenderness. EXTREMITIES: No edema. Fair pulses. Warm and dry. LAB DATA AND TESTS: White count 6. Electrolytes were normal. Troponins were normal. Influenza negative. COVID test positive. Chest x-ray new diffuse bilateral interstitial alveolar opacities without consolidation, heart not enlarged. IMPRESSION: The patient has COVID pneumonia with mild hypoxia, diabetes mellitus and obesity. PLAN: The patient will be started on the usual COVID medications including Remdesivir, Decadron, anticoagulation. He is in stable condition. I will make him some anxiety medicine available if he needs it and continue his home medication. PROGNOSIS: Fair.
[2021-02-20] MEDS: OLUMIANT PO SCH (17:43)
[2021-02-20] MEDS: REMDESIVIR 100 MG in Sodium Chloride 0.9% 100 ML BAG 100 ML IV SCH (17:44)
[2021-02-21] MEDS: Glucophage XR 500 MG PO SCH ×2 (08:21→17:06)
[2021-02-21] MEDS: Advair Hfa 115/21 Common canister IH SCH ×2 (08:55→19:50)
[2021-02-21] MEDS: VENTOLIN COMMON CANISTER IH PRN ×2 (10:10→19:50)
[2021-02-21] MEDS: ENOXAPARIN SODIUM SQ SCH (10:24)
[2021-02-21] MEDS: Cymbalta 30 MG Capsule PO SCH (10:25)
[2021-02-21] MEDS: DECADRON 10MG INJ. IV SCH (10:25)
[2021-02-21] MEDS: Actos 30 MG PO SCH (10:25)
[2021-02-21] MEDS: Flomax 0.4 MG PO SCH (10:26)
[2021-02-21] MEDS: Pepcid 20 MG VIAL IV SCH ×2 (10:27→20:57)
[2021-02-21] MEDS: MELOXICAM PO SCH (10:27)
[2021-02-21] MEDS: ZOCOR 20MG PO SCH (10:27)
[2021-02-21] MEDS: HUMALOG SQ PRN ×3 (12:13→20:57)
[2021-02-21] MEDS: OLUMIANT PO SCH (17:06)
[2021-02-21] MEDS: REMDESIVIR 100 MG in Sodium Chloride 0.9% 100 ML BAG 100 ML IV SCH (17:06)
[2021-02-21] MEDS: Sodium Chloride 0.9% 1000 ML 1,000 ML IV SCH ×2 (20:57)
[2021-02-22 07:22] LABS: Absolute Neutrophil Ct (ANC) 4.76 (1.4-6.9); Basophil (Absolute #) 0 (0-0.4); Eosinophil (Absolute #) 0 (0-0.5); Hematocrit 39.6 % (42-50); Hemoglobin 12.7 gm/dl (12.5-18.0); Lymphocyte (Absolute #) 1.12 (1.0-4.6); Lymphocytes % 17.2 % (24.0-44.0); Mean Cell Volume 96.8 fl (78-100); Mean Corpuscular Hemoglobin 31.1 pg (26-32); Mean Corpuscular Hgb Concent. 32.1 g/dl (32-36); Mean Platelet Volume 11.1 fl (7.5-11.0); Monocyte (Absolute #) 0.65 (0.0-1.3); Neutrophil % 72.8 % (36.0-66.0); Platelet Count 179 K/mm3 (150-450); Red Blood Count 4.09 M/mm3 (4.1-5.6); Red Cell Distribution Width 12.5 % (11.5-14.0); White Blood Count 6.5 K/mm3 (4.0-10.5)
[2021-02-22] MEDS: HUMALOG SQ PRN (07:24)
[2021-02-22] MEDS: Glucophage XR 500 MG PO SCH (07:25)
[2021-02-22 07:40] LABS: ALKALINE PHOSPHATASE 57 U/L (38-126); ANION GAP 11.9 MEQ/L (5-15); BLOOD UREA NITROGEN 19 mg/dL (9-20); CHLORIDE 105 mmol/L (98-107); Calcium 8.2 mg/dL (8.4-10.2); Carbon Dioxide 25 mmol/L (22-30); Creatinine 1 0.78 mg/dL (0.66-1.25); EST GLOMERULAR FILTRATION RATE > 60.0 ML/MIN; Glucose 231 mg/dL (74-106); Potassium 4.2 mmol/L (3.5-5.1); SGOT/AST 29 U/L (17-59); SGPT/ALT 19 U/L (0-50); SODIUM 138 mmol/L (137-145); Total Protein 5.4 g/dL (6.3-8.2)
[2021-02-22] MEDS: Advair Hfa 115/21 Common canister IH SCH (07:50)
[2021-02-22] MEDS: VENTOLIN COMMON CANISTER IH PRN (07:50)
[2021-02-22] MEDS: ZOCOR 20MG PO SCH (09:07)
[2021-02-22] MEDS: Cymbalta 30 MG Capsule PO SCH (09:07)
[2021-02-22] MEDS: ENOXAPARIN SODIUM SQ SCH (09:07)
[2021-02-22] MEDS: DECADRON 10MG INJ. IV SCH (09:08)
[2021-02-22] MEDS: Flomax 0.4 MG PO SCH (09:08)
[2021-02-22] MEDS: Actos 30 MG PO SCH (09:08)
[2021-02-22] MEDS: Pepcid 20 MG VIAL IV SCH (09:08)
[2021-02-22] MEDS: MELOXICAM PO SCH (09:09)
[2021-02-22 11:51] VITALS: BP 147/71
[2021-02-22] MEDS: Sodium Chloride 0.9% 1000 ML 1,000 ML IV SCH (12:12)
[2021-02-22 14:04] VITALS: PULSE 68
[2021-02-22 15:47] VITALS: O2SAT 93
--- NOTE | 2021-03-10 15:10 | DS ---
ADMISSION DIAGNOSES: 1) COVID pneumonia. 2) Diabetes mellitus type II. DISCHARGE DIAGNOSES: 1) COVID PNEUMONIA. 2) DIABETES MELLITUS TYPE II. HOSPITAL COURSE: The patient presented to the emergency room with shortness of breath, chest aching, cough. His COVID test was positive and he was treated with Remdesivir, Lovenox 40 subcu every 12 hours and Decadron. Olumiant 4 mg q.d. and Ativan for anxiety. He is able to eat and drink pretty well. He really improved quite rapidly after initially being on some oxygen at 5 liters and weaned down to 2 liters. He was discharged home on his home medications including Proventil 2 puffs every 4 hours PRN, atorvastatin 20 q.d., Cymbalta 30 q.d., Advair HFA 1 puff b.i.d., meloxicam 7.5 q.d., Metformin Extended Release 500 mg b.i.d., Actos 30 q.d., Flomax 0.4 q.d. Follow up with his usual physician in two to three weeks. He is to return if he becomes short of breath. His EKG is normal. Chest x-ray showed some fine infiltrates bilateral bases typical for COVID. PROGNOSIS: Anna to be good.
== END 2021-02-22 17:23 | disposition home or self-care (01) | DRG 177 ==
LOC: ED 09:59 → MED SURG 12:33
PROVIDERS: ADMIT Family Medicine; ATTEND Family Medicine
DX: U07.1 COVID-19 (principal); J12.82 Pneumonia due to coronavirus disease 2019; E11.9 Type 2 diabetes mellitus without complications; R53.83 Other fatigue; F41.9 Anxiety disorder, unspecified; R09.02 Hypoxemia; Z85.038 Personal history of other malignant neoplasm of large intestine; Z79.899 Other long term (current) drug therapy; E66.9 Obesity, unspecified; R07.9 Chest pain, unspecified
CPT/HCPCS: 36000; 36415; 71045; 80053; 81001; 82947; 83605; 83735; 83880; 84484; 85025; 85379; 85610; 87400; 93005; 94640; 94760; 94762; 96360; 96361; 99285; J1100; J1650; J1817; A9270-GY

== ENCOUNTER 2022-05-26 15:44 | Day surgery (SDC) | payer MEDICARE, OTHER ==
--- NOTE | 2022-05-26 20:28 | XRAY ---
Indication: Right knee injection. Intraoperative fluoroscopy provided for 10 seconds. Single digital spot image submitted for interpretation demonstrates needle tip projecting over the right femur intercondylar notch. Small amount of contrast injected for needle tip placement. Correlate with intraoperative findings/report.
--- NOTE | 2022-05-27 09:13 | XRAY ---
10 seconds of fluoroscopy was used in surgery for a right intra-articular knee injection.
== END 2022-05-26 18:15 | disposition home or self-care (01) ==
LOC: SDC-PAIN 15:44
PROVIDERS: ATTEND Psychiatry & Neurology Pain Medicine
DX: M17.11 Unilateral primary osteoarthritis, right knee (principal); E11.9 Type 2 diabetes mellitus without complications; Z79.899 Other long term (current) drug therapy
CPT/HCPCS: 20610; 73560; 77002; 82947; Q9966

== ENCOUNTER 2022-06-30 08:38 | Day surgery (SDC) | payer MEDICARE, OTHER ==
[2022-06-30] MEDS ORDERED: BUPIVACAINE 0.5% VIAL IJ ONE (08:39)
[2022-06-30] MEDS ORDERED: Depo-Medrol 40 MG/ML IM ONE (08:39)
[2022-06-30] MEDS ORDERED: DIPRIVAN 200 MG/20 ML IV ONE (10:23)
--- NOTE | 2022-06-30 11:29 | XRAY ---
Indication: Bilateral L4-S1 MBB. Intraoperative fluoroscopy provided for 13 seconds. Single digital spot image submitted for interpretation demonstrates posterior needle tips projecting over the expected left and right L4-S1 nerve roots. Correlate with intraoperative findings/report.
[2022-06-30] MEDS ORDERED: Lactated Ringers 1,000 ML IV ONE (11:36)
--- NOTE | 2022-06-30 12:25 | XRAY ---
13 seconds of fluoroscopy was used in surgery for a bilateral L4-S1 MBB.
== END 2022-06-30 10:47 | disposition home or self-care (01) ==
LOC: SDC-PAIN 08:38
PROVIDERS: ATTEND Psychiatry & Neurology Pain Medicine
DX: M47.816 Spondylosis without myelopathy or radiculopathy, lumbar region (principal); E11.9 Type 2 diabetes mellitus without complications; Z79.899 Other long term (current) drug therapy
CPT/HCPCS: 64493; 64494; 72020; 77002; 82947; J1030; J2704

== ENCOUNTER 2022-07-21 10:49 | Day surgery (SDC) | payer MEDICARE, OTHER ==
[2022-07-21] MEDS ORDERED: Decadron 4 MG INJ IV ONE (10:50)
[2022-07-21] MEDS ORDERED: LIDOCAINE HCL 2% 100 MG/5 ML IJ ONE (10:50)
[2022-07-21] MEDS ORDERED: DIPRIVAN 200 MG/20 ML IV ONE (12:08)
--- NOTE | 2022-07-21 13:35 | XRAY ---
Indication: Left C2-C5 MBB. Intraoperative fluoroscopy provided for 34 seconds. 3 digital spot images submitted for interpretation demonstrates posterior needle tips projecting over the expected left C2-C5 nerve roots. Correlate with intraoperative findings/report.
--- NOTE | 2022-07-21 13:37 | XRAY ---
34 seconds of fluoroscopy was used in surgery for a left C2-C5 MBB.
[2022-07-21] MEDS ORDERED: Lactated Ringers 1,000 ML IV ONE (14:03)
== END 2022-07-21 12:45 | disposition home or self-care (01) ==
LOC: SDC-PAIN 10:49
PROVIDERS: ATTEND Psychiatry & Neurology Pain Medicine
DX: M47.812 Spondylosis without myelopathy or radiculopathy, cervical region (principal); E11.9 Type 2 diabetes mellitus without complications; Z79.899 Other long term (current) drug therapy
CPT/HCPCS: 64490; 64491; 64492; 72040; 77002; 82947; J1100; J2704

== ENCOUNTER 2024-10-10 14:52 | Day surgery (SDC) | payer MEDICARE, OTHER ==
[2024-10-10] MEDS ORDERED: Depo-Medrol 40 MG/ML IM ONE (14:53)
[2024-10-10] MEDS ORDERED: BUPIVACAINE 0.5% VIAL IJ ONE (14:53)
[2024-10-10] MEDS ORDERED: LIDOCAINE HCL 1% AMPUL 5 ML IJ ONE (14:53)
--- NOTE | 2024-10-10 20:21 | XRAY ---
Indication: Right shoulder and subacromial bursa injection. Intraoperative fluoroscopy provided for 19 seconds. 3 digital spot image submitted for interpretation demonstrates needle tip projecting over right glenohumeral joint superiorly. Second needle tip subacromial. Small amount of contrast injected for needle tip placement. Correlate with intraoperative findings/report.
--- NOTE | 2024-10-10 20:22 | XRAY ---
Indication: Left shoulder and subacromial bursa injection. Intraoperative fluoroscopy provided for 19 seconds. 2 digital spot image submitted for interpretation demonstrates needle tip projecting over left glenohumeral joint superiorly. Second needle tip subacromial. Small amount of contrast injected for needle tip placement. Correlate with intraoperative findings/report.
--- NOTE | 2024-10-10 21:51 | XRAY ---
19 seconds of fluoroscopy were used in surgery for a right intra-articular shoulder and a right subacromial bursa injection.
--- NOTE | 2024-10-10 21:51 | XRAY ---
19 seconds of fluoroscopy were used in surgery for a left intra-articular shoulder and a left subacromial bursa injection.
== END 2024-10-10 18:05 | disposition home or self-care (01) ==
LOC: SDC-PAIN 14:52
PROVIDERS: ATTEND Psychiatry & Neurology Pain Medicine
DX: M19.012 Primary osteoarthritis, left shoulder (principal); M19.011 Primary osteoarthritis, right shoulder; E11.9 Type 2 diabetes mellitus without complications; M75.52 Bursitis of left shoulder; M75.51 Bursitis of right shoulder
CPT/HCPCS: 20610; 20611; 73030; 77002; 82947; Q9966